=== PATIENT | male | born 1970 | race Caucasian/White ===

== ENCOUNTER 2017-10-23 07:18 | Emergency (ER) | payer MEDICAID ==
[~2017-10-23] VITALS: Ht 188 cm; Wt 88.5 kg
[2017-10-23] MEDS ORDERED: SODIUM CHLORIDE FLUSH 10ML SYR IVF ONE (08:00)
[2017-10-23 08:09] LABS: BASOPHILS # (AUTO) 0.03 x10^3/uL (0-0.1); BASOPHILS % (AUTO) 0 % (0-1); EOSINOPHILS # (AUTO) 0.04 x10^3/uL (0-0.4); EOSINOPHILS % (AUTO) 1 % (1-7); LYMPHOCYTES % (AUTO) 19 % (22-44); MD NO; MEAN CORPUSCULAR HEMOGLOBIN 30.4 pg (27.5-34.5); MEAN CORPUSCULAR HGB CONC 33.9 g/dL (33.2-36.2); MEAN CORPUSCULAR VOLUME 89.5 fL (81-97); MONOCYTES # (AUTO) 0.81 x10^3/uL (0.2-0.8); MONOCYTES % (AUTO) 9 % (2-9); NEUTROPHILS # (AUTO) 6.63 x10^3/uL (1.8-6.8); NEUTROPHILS % (AUTO) 71 % (42-75); PLATELET COUNT 257 x10^3/uL (130-400); RED BLOOD COUNT 5.17 x10^6/uL (4.38-5.82); RED CELL DISTRIBUTION WIDTH 12.8 % (9.4-14.8)
[2017-10-23 08:21] LABS: ALANINE AMINOTRANSFERASE 26 U/L (12-78); ALBUMIN 3.7 g/dL (3.4-5.0); ANION GAP 6 mmol/L (5-15); CALCIUM 9.3 mg/dL (8.5-10.1); CHLORIDE 107 mmol/L (98-107)
[2017-10-23 08:26] LABS: ALKALINE PHOSPHATASE 96 U/L (45-117); BILIRUBIN,TOTAL 0.5 mg/dL (0.2-1.0); CREATININE 1.17 mg/dL (0.7-1.3); TOTAL PROTEIN 7.5 g/dL (6.4-8.2); TROPONIN I < 0.015 ng/mL (0.000-0.045)
[2017-10-23 10:21] VITALS: BP 120/73
== END 2017-10-23 10:24 | disposition home or self-care (01) ==
LOC: ED 09:42
DX: R07.2 Precordial pain (principal); I25.2 Old myocardial infarction; I11.0 Hypertensive heart disease with heart failure; E78.5 Hyperlipidemia, unspecified; Z72.9 Problem related to lifestyle, unspecified
CPT/HCPCS: 36415; 71045; 80053; 83880; 84484; 85025; 85379; 93005; 99285

== ENCOUNTER 2018-02-18 03:41 | Emergency (ER) | payer MEDICAID ==
[~2018-02-18] VITALS: Ht 188 cm; Wt 84.2 kg
[2018-02-18 03:48] VITALS: BP 111/65
== END 2018-02-18 04:23 | disposition home or self-care (01) ==
LOC: ED 04:03
DX: Z48.00 Encounter for change or removal of nonsurgical wound dressing (principal); I10 Essential (primary) hypertension; I25.2 Old myocardial infarction; E78.5 Hyperlipidemia, unspecified; F17.200 Nicotine dependence, unspecified, uncomplicated
CPT/HCPCS: 99281

== ENCOUNTER 2018-02-19 10:45 | Emergency (ER) | payer MEDICAID ==
[~2018-02-19] VITALS: Ht 188 cm; Wt 82.7 kg
[2018-02-19] MEDS ORDERED: ASPIRIN 81 MG TABLET CHEW ONE (11:16)
[2018-02-19] MEDS ORDERED: NITROGLYCERIN SINGLE TAB 0.4 MG SL ONE (11:16)
[2018-02-19 11:23] LABS: BASOPHILS # (AUTO) 0.01 x10^3/uL (0-0.1); BASOPHILS % (AUTO) 0 % (0-1); EOSINOPHILS # (AUTO) 0.11 x10^3/uL (0-0.4); EOSINOPHILS % (AUTO) 1 % (1-7); LYMPHOCYTES # (AUTO) 1.39 x10^3/uL (1-3.4); LYMPHOCYTES % (AUTO) 15 % (22-44); MD NO; MEAN CORPUSCULAR HEMOGLOBIN 31.1 pg (27.5-34.5); MEAN CORPUSCULAR HGB CONC 34.4 g/dL (33.2-36.2); MEAN CORPUSCULAR VOLUME 90.2 fL (81-97); MEAN PLATELET VOLUME 8.8 fL (7.4-10.4); MONOCYTES # (AUTO) 0.85 x10^3/uL (0.2-0.8); MONOCYTES % (AUTO) 9 % (2-9); NEUTROPHILS # (AUTO) 6.82 x10^3/uL (1.8-6.8); NEUTROPHILS % (AUTO) 74 % (42-75); PLATELET COUNT 302 x10^3/uL (130-400); RED BLOOD COUNT 4.73 x10^6/uL (4.38-5.82); RED CELL DISTRIBUTION WIDTH 13.6 % (9.4-14.8)
[2018-02-19] MEDS ORDERED: NITROGLYCERIN OINT 2%, 1GM TP ONE ×2 (11:25→11:30)
[2018-02-19 11:28] LABS: CHLORIDE 104 mmol/L (98-107)
[2018-02-19] MEDS ORDERED: NITROGLYCERIN SINGLE TAB 0.4 MG SL PRN (11:30)
[2018-02-19] MEDS ORDERED: ASPIRIN 81 MG TABLET CHEW PO ONE (11:30)
[2018-02-19 11:35] LABS: ALANINE AMINOTRANSFERASE 632 U/L (12-78); ALBUMIN 3.5 g/dL (3.4-5.0); ANION GAP 14 mmol/L (5-15); CALCIUM 9.3 mg/dL (8.5-10.1); CREATININE 1.36 mg/dL (0.7-1.3)
[2018-02-19 11:46] LABS: ALKALINE PHOSPHATASE 167 U/L (45-117); BILIRUBIN,TOTAL 0.7 mg/dL (0.2-1.0); TOTAL PROTEIN 7.3 g/dL (6.4-8.2); TROPONIN I < 0.015 ng/mL (0.000-0.045)
[2018-02-19 11:52] VITALS: BP 109/67
== END 2018-02-19 12:43 | disposition home or self-care (01) ==
LOC: ED 12:32
DX: R07.2 Precordial pain (principal); E78.5 Hyperlipidemia, unspecified; I10 Essential (primary) hypertension; I25.2 Old myocardial infarction
CPT/HCPCS: 36415; 71045; 80053; 80074; 83690; 84484; 85025; 87521; 93005; 99285

== ENCOUNTER 2018-04-09 08:58 | Emergency (ER) | payer MEDICAID ==
[~2018-04-09] VITALS: Ht 188 cm; Wt 88.0 kg
[2018-04-09] MEDS ORDERED: MORPHINE SULFATE 4 MG/ML, 1ML ONE (10:22)
[2018-04-09] MEDS ORDERED: SODIUM CHLORIDE FLUSH 10ML SYR IVF ONE (10:30)
[2018-04-09] MEDS ORDERED: MORPHINE SULFATE 4 MG/ML, 1ML IVPush PRN (10:30)
[2018-04-09 10:32] LABS: MICROSCOPIC NOT IND
[2018-04-09 10:36] LABS: CULTURE INDICATED? NO
[2018-04-09 11:06] LABS: ALANINE AMINOTRANSFERASE 40 U/L (12-78); ALBUMIN 3.5 g/dL (3.4-5.0); ANION GAP 6 mmol/L (5-15); CALCIUM 9.3 mg/dL (8.5-10.1); CHLORIDE 105 mmol/L (98-107); CREATININE 0.89 mg/dL (0.7-1.3)
[2018-04-09 11:11] LABS: ALKALINE PHOSPHATASE 132 U/L (45-117); BILIRUBIN,TOTAL 0.3 mg/dL (0.2-1.0); TOTAL PROTEIN 7.2 g/dL (6.4-8.2); TROPONIN I < 0.015 ng/mL (0.000-0.045)
[2018-04-09 11:29] VITALS: BP 106/78
[2018-04-09 11:42] LABS: BASOPHILS # (AUTO) 0.03 x10^3/uL (0-0.1); BASOPHILS % (AUTO) 0 % (0-1); EOSINOPHILS # (AUTO) 0.16 x10^3/uL (0-0.4); EOSINOPHILS % (AUTO) 2 % (1-7); LYMPHOCYTES # (AUTO) 1.93 x10^3/uL (1-3.4); LYMPHOCYTES % (AUTO) 26 % (22-44); MD NO; MEAN CORPUSCULAR HEMOGLOBIN 31.1 pg (27.5-34.5); MEAN CORPUSCULAR HGB CONC 34.3 g/dL (33.2-36.2); MEAN CORPUSCULAR VOLUME 90.7 fL (81-97); MEAN PLATELET VOLUME 9.1 fL (7.4-10.4); MONOCYTES # (AUTO) 0.61 x10^3/uL (0.2-0.8); MONOCYTES % (AUTO) 8 % (2-9); NEUTROPHILS % (AUTO) 63 % (42-75); PLATELET COUNT 236 x10^3/uL (130-400); RED BLOOD COUNT 5.12 x10^6/uL (4.38-5.82); RED CELL DISTRIBUTION WIDTH 13.5 % (9.4-14.8)
[2018-04-09] MEDS ORDERED: MAGNESIUM CITRATE 300ML ORAL SOL PO ONE (12:30)
== END 2018-04-09 12:39 | disposition home or self-care (01) ==
LOC: ED 11:50
DX: K59.00 Constipation, unspecified (principal); I25.2 Old myocardial infarction; I10 Essential (primary) hypertension; E78.5 Hyperlipidemia, unspecified
CPT/HCPCS: 36415; 71046; 74021; 80053; 81003; 83605; 83690; 84484; 85025; 85379; 87040; 93005; 96374

== ENCOUNTER 2018-09-16 06:15 | Emergency (ER) | payer SELFPAY ==
[~2018-09-16] VITALS: Ht 188 cm; Wt 82.7 kg
--- NOTE | 2018-09-16 06:46 | NUR ---
FIRST CONTACT WITH PT. PT STATES THAT HE THINKS HE HAS AN INGUINAL HERNIA. PT C/O LOWER LEFT QUADRANT ABD PAIN RATE 8/10 AT THIS TIME. PT DENIES N/V/D. PT STATES THAT HE HAS HAD IT FOR ABOUT A MONTH AND THAT PAIN HAS BEEN INCREASINGLY GETTING WORSE OVER THE PAST 3 DAYS. PT STATES HE IS HAVING DIFFICULTY WALKING. BP/SPO2 MONITORS IN PLACE. CALL LIGHT WITHIN REACH. PA AT BEDSIDE TO ASSESS.
--- NOTE | 2018-09-16 06:48 | NUR ---
PT AMB TO BR AND BACK TO ROOM WITH STEADY GAIT.
--- NOTE | 2018-09-16 06:50 | NUR ---
Bedside report from Flavia Penn
--- NOTE | 2018-09-16 06:53 | NUR ---
REPORT GIVEN TO JAVIER AGUILLON.
[2018-09-16 07:17] LABS: BASOPHILS # (AUTO) 0.02 x10^3/uL (0-0.1); BASOPHILS % (AUTO) 0 % (0-1); EOSINOPHILS # (AUTO) 0.07 x10^3/uL (0-0.4); EOSINOPHILS % (AUTO) 1 % (1-7); LYMPHOCYTES # (AUTO) 1.72 x10^3/uL (1-3.4); LYMPHOCYTES % (AUTO) 21 % (22-44); MD NO; MEAN CORPUSCULAR HEMOGLOBIN 29.9 pg (27.5-34.5); MEAN CORPUSCULAR HGB CONC 33.3 g/dL (33.2-36.2); MEAN CORPUSCULAR VOLUME 89.9 fL (81-97); MEAN PLATELET VOLUME 8.2 fL (7.4-10.4); MONOCYTES # (AUTO) 0.57 x10^3/uL (0.2-0.8); MONOCYTES % (AUTO) 7 % (2-9); NEUTROPHILS # (AUTO) 5.77 x10^3/uL (1.8-6.8); NEUTROPHILS % (AUTO) 71 % (42-75); PLATELET COUNT 286 x10^3/uL (130-400); RED BLOOD COUNT 4.98 x10^6/uL (4.38-5.82); RED CELL DISTRIBUTION WIDTH 13.4 % (9.4-14.8)
[2018-09-16 07:20] LABS: ALBUMIN 3.9 g/dL (3.4-5.0); ANION GAP 4 mmol/L (5-15); CALCIUM 9.2 mg/dL (8.5-10.1); CHLORIDE 107 mmol/L (98-107); CREATININE 1.24 mg/dL (0.7-1.3)
--- NOTE | 2018-09-16 07:43 | NUR ---
PATIENT RESTING COMFORTABLY ON GURNEY DENIES LLQ PAIN/NAUSEA WHILE LYING REPORT PAIN 10/10 LLQ PRESSURE WHEN STANDING ABD FLAT (NOT DISTENDED), LLQ TENDER BUT W/ NORMAL BOWEL SOUNDS VSS PROVIDED W/ ADDITIONAL BLANKET BUT DEFERRED PO FLUIDS/SOLIDS TESTING IN PROGRESS UPDATED ON ESTIMATED POC PARTNER AT BEDSIDE LAB CALLED IN R/T URINE RESULTS- LAB TO POST RESULTS SHORTLY
[2018-09-16 07:47] LABS: CULTURE INDICATED? NO; MICROSCOPIC NOT IND
[2018-09-16 08:17] VITALS: BP 115/72
--- NOTE | 2018-09-16 08:19 | NUR ---
provider/assembly instructions writer reviewed d/c paln with patient w/ teach back successful. Patient to avoid bearing down, return if pain returns and hopefully get appointment w/ Dr. Gómez (surgeon) as soon as joie
== END 2018-09-16 08:20 | disposition home or self-care (01) ==
LOC: ED 07:57
DX: K40.91 Unilateral inguinal hernia, without obstruction or gangrene, recurrent (principal); I25.2 Old myocardial infarction; I10 Essential (primary) hypertension
CPT/HCPCS: 36415; 80048; 81003; 82040; 85025; 99283

== ENCOUNTER 2018-09-27 02:14 | Emergency (ER) | payer OTHER ==
[~2018-09-27] VITALS: Ht 188 cm; Wt 83.0 kg
--- NOTE | 2018-09-27 02:30 | NUR ---
PT. TO ED WITH C/O LEFT FACIAL SWELLING STARTING TONIGHT. DR. SANCHEZ AT BS FOR EVAL. PT. REPORTS UPPER GUM PAIN ON LEFT SIDE. CALL LIGHT IN REACH. FAMILY AT BS.
[2018-09-27] MEDS ORDERED: LIDOCAINE-MPF 1%, 5ML ONE (02:33)
[2018-09-27] MEDS ORDERED: OXYcodone/APAP 5/325MG TABLET ONE (02:46)
[2018-09-27] MEDS ORDERED: IBUPROFEN 600 MG TABLET ONE (02:46)
[2018-09-27] MEDS ORDERED: IBUPROFEN 600 MG TABLET PO ONE (03:00)
[2018-09-27] MEDS ORDERED: LIDOCAINE-MPF 1%, 5ML INFIL ONE (03:00)
[2018-09-27] MEDS ORDERED: OXYcodone/APAP 5/325MG TABLET PO ONE (03:00)
[2018-09-27 03:14] VITALS: BP 133/92
== END 2018-09-27 03:22 | disposition home or self-care (01) ==
LOC: ED 02:48
DX: K04.7 Periapical abscess without sinus (principal); K02.9 Dental caries, unspecified; I10 Essential (primary) hypertension; I25.2 Old myocardial infarction
CPT/HCPCS: 41800; 99283

== ENCOUNTER 2018-10-01 16:45 | Emergency (ER) | payer SELFPAY ==
[~2018-10-01] VITALS: Ht 188 cm; Wt 85.2 kg
[2018-10-01 18:05] LABS: BASOPHILS % (AUTO) 0 % (0-1); EOSINOPHILS # (AUTO) 0.14 x10^3/uL (0-0.4); EOSINOPHILS % (AUTO) 1 % (1-7); LYMPHOCYTES # (AUTO) 1.15 x10^3/uL (1-3.4); LYMPHOCYTES % (AUTO) 12 % (22-44); MD NO; MEAN CORPUSCULAR HEMOGLOBIN 30.4 pg (27.5-34.5); MEAN CORPUSCULAR HGB CONC 33.8 g/dL (33.2-36.2); MEAN PLATELET VOLUME 8.6 fL (7.4-10.4); MONOCYTES # (AUTO) 0.82 x10^3/uL (0.2-0.8); MONOCYTES % (AUTO) 8 % (2-9); NEUTROPHILS # (AUTO) 7.86 x10^3/uL (1.8-6.8); NEUTROPHILS % (AUTO) 79 % (42-75); PLATELET COUNT 206 x10^3/uL (130-400); RED CELL DISTRIBUTION WIDTH 13.2 % (9.4-14.8)
[2018-10-01 18:10] LABS: ALBUMIN 3.1 g/dL (3.4-5.0); ANION GAP 4 mmol/L (5-15); CALCIUM 8.5 mg/dL (8.5-10.1); CHLORIDE 110 mmol/L (98-107); CREATININE 1.14 mg/dL (0.7-1.3)
[2018-10-01] MEDS ORDERED: HYDROcodone/APAP 5/325 TABLET PO ONE (19:00)
[2018-10-01] MEDS ORDERED: AMPICILLIN/SULBACTAM 3 GM in SODIUM CHLORIDE 0.9% 100 ML IV ONE (19:00)
[2018-10-01] MEDS ORDERED: HYDROcodone/APAP 5/325 TABLET ONE (19:03)
--- NOTE | 2018-10-01 19:07 | NUR ---
SPLINT APPLIED BY TECH TO LEFT ARM. IV ANTIBIOTICS STARTED. PT MEDICATED FOR PAIN PER EMAR.
--- NOTE | 2018-10-01 20:43 | NUR ---
PT SLEEPING. VSS. UPDATED ON POC.
[2018-10-01 21:09] VITALS: BP 124/71
--- NOTE | 2018-10-01 21:10 | NUR ---
PIV REMOVED, PT GETTING DRESSED FOR DISCHARGE HOME
== END 2018-10-01 21:16 | disposition home or self-care (01) ==
LOC: ED 20:39
DX: L03.114 Cellulitis of left upper limb (principal); F17.200 Nicotine dependence, unspecified, uncomplicated; I25.10 Atherosclerotic heart disease of native coronary artery without angina pectoris; I25.2 Old myocardial infarction; I10 Essential (primary) hypertension; E78.5 Hyperlipidemia, unspecified
CPT/HCPCS: 36415; 73130; 80048; 82040; 85025; 87040; 96365; 99284; J0295

== ENCOUNTER 2018-10-01 22:56 | Emergency (ER) | payer SELFPAY ==
--- NOTE | 2018-10-01 23:23 | NUR ---
NOT IN LOBBY WHEN CALLED
--- NOTE | 2018-10-01 23:28 | NUR ---
NIL X 3 CALLS
== END 2018-10-01 23:30 | disposition left against medical advice (07) ==
LOC: ED 23:24
DX: M79.642 Pain in left hand (principal); Z53.21 Procedure and treatment not carried out due to patient leaving prior to being seen by health care provider

== ENCOUNTER 2019-04-21 13:03 | Emergency (ER) | payer MEDICAID ==
[~2019-04-21] VITALS: Ht 188 cm; Wt 81.3 kg
[2019-04-21 13:19] VITALS: BP 102/62
[2019-04-21] MEDS ORDERED: ONDANSETRON ODT 4 MG ONE (13:49)
[2019-04-21] MEDS ORDERED: HYDROcodone/APAP 5/325 TABLET ONE (13:49)
[2019-04-21] MEDS ORDERED: ONDANSETRON ODT 4 MG PO ONE (14:00)
[2019-04-21] MEDS ORDERED: HYDROcodone/APAP 5/325 TABLET PO ONE (14:00)
== END 2019-04-21 15:46 | disposition home or self-care (01) ==
LOC: ED 15:40
DX: S06.0X0A Concussion without loss of consciousness, initial encounter (principal); S00.432A Contusion of left ear, initial encounter; S00.83XA Contusion of other part of head, initial encounter; S09.90XA Unspecified injury of head, initial encounter; I25.2 Old myocardial infarction; I10 Essential (primary) hypertension; I25.10 Atherosclerotic heart disease of native coronary artery without angina pectoris; X58.XXXA Exposure to other specified factors, initial encounter; Y93.89 Activity, other specified; Y92.89 Other specified places as the place of occurrence of the external cause; Y99.8 Other external cause status
CPT/HCPCS: 70450; 70486; 99284; Q0162

== ENCOUNTER 2019-05-05 21:07 | Emergency (ER) | payer MEDICAID ==
[~2019-05-05] VITALS: Ht 188 cm; Wt 80.0 kg
[2019-05-05 21:09] VITALS: BP 114/70
--- NOTE | 2019-05-05 21:20 | NUR ---
PT C/O LEFT INGUINAL HURNIA THAT HAS BEEN THERE FOR A FEW MONTHS. PAIN HAS INCREASED IN PAST COUPLE DAYS. CALL LIGHT IN REACH. MD AT BEDSIDE. AWAITING ORDERS AT THIS TIME.
[2019-05-05] MEDS ORDERED: HYDROcodone/APAP 5/325 TABLET PO ONE (21:30)
[2019-05-05] MEDS ORDERED: ONDANSETRON ODT 4 MG PO ONE (21:30)
[2019-05-05] MEDS ORDERED: ONDANSETRON ODT 4 MG ONE (21:44)
[2019-05-05] MEDS ORDERED: HYDROcodone/APAP 5/325 TABLET ONE (21:45)
--- NOTE | 2019-05-05 21:56 | NUR ---
MEDS ADMIN PER JUL.
--- NOTE | 2019-05-05 22:03 | NUR ---
PT DECLINED TAXI VOUCHER AND BUS PASS.
== END 2019-05-05 22:05 | disposition home or self-care (01) ==
LOC: ED 21:55
DX: K40.91 Unilateral inguinal hernia, without obstruction or gangrene, recurrent (principal); E78.5 Hyperlipidemia, unspecified; I11.9 Hypertensive heart disease without heart failure; I25.2 Old myocardial infarction; F17.200 Nicotine dependence, unspecified, uncomplicated; Z72.9 Problem related to lifestyle, unspecified
CPT/HCPCS: 99283; Q0162

== ENCOUNTER 2019-05-26 09:04 | Emergency (ER) | payer MEDICAID ==
[~2019-05-26] VITALS: Ht 188 cm; Wt 84.1 kg
[2019-05-26] MEDS ORDERED: OXYcodone/APAP 5/325MG TABLET ONE (09:51)
[2019-05-26] MEDS ORDERED: KETOROLAC 60 MG/2 ML ONE (09:51)
[2019-05-26] MEDS ORDERED: AMOXICILLIN 500 MG CAPSULE ONE (09:51)
--- NOTE | 2019-05-26 09:56 | NUR ---
PT MEDICATED PER ERP ORDER. CALL LIGHT WITHIN REACH.
[2019-05-26] MEDS ORDERED: KETOROLAC 30 MG/1 ML IM ONE (10:00)
[2019-05-26] MEDS ORDERED: AMOXICILLIN 500 MG CAPSULE PO ONE (10:00)
[2019-05-26] MEDS ORDERED: OXYcodone/APAP 5/325MG TABLET PO ONE (10:00)
[2019-05-26 10:32] VITALS: BP 132/74
== END 2019-05-26 10:37 | disposition home or self-care (01) ==
LOC: ED 09:25
DX: K08.89 Other specified disorders of teeth and supporting structures (principal); I25.10 Atherosclerotic heart disease of native coronary artery without angina pectoris; I25.2 Old myocardial infarction; I10 Essential (primary) hypertension; E78.5 Hyperlipidemia, unspecified
CPT/HCPCS: 96372; 99283; J1885

== ENCOUNTER 2019-05-31 13:19 | Emergency (ER) | payer MEDICAID ==
[~2019-05-31] VITALS: Ht 188 cm; Wt 84.6 kg
[2019-05-31 14:01] LABS: RAPID INFLUENZA A Negative (Negative); RAPID INFLUENZA B Negative (Negative)
[2019-05-31 14:12] LABS: BASOPHILS # (AUTO) 0.02 x10^3/uL (0-0.1); BASOPHILS % (AUTO) 0 % (0-1); EOSINOPHILS # (AUTO) 0.09 x10^3/uL (0-0.4); EOSINOPHILS % (AUTO) 1 % (1-7); LYMPHOCYTES # (AUTO) 1.88 x10^3/uL (1-3.4); LYMPHOCYTES % (AUTO) 24 % (22-44); MD NO; MEAN CORPUSCULAR HEMOGLOBIN 30.2 pg (27.5-34.5); MEAN CORPUSCULAR HGB CONC 33.3 g/dL (33.2-36.2); MEAN CORPUSCULAR VOLUME 90.7 fL (81-97); MONOCYTES # (AUTO) 0.75 x10^3/uL (0.2-0.8); MONOCYTES % (AUTO) 10 % (2-9); NEUTROPHILS # (AUTO) 5.01 x10^3/uL (1.8-6.8); NEUTROPHILS % (AUTO) 65 % (42-75); PLATELET COUNT 250 x10^3/uL (130-400); RED BLOOD COUNT 4.73 x10^6/uL (4.38-5.82); RED CELL DISTRIBUTION WIDTH 13.2 % (9.4-14.8)
[2019-05-31 14:19] LABS: ALBUMIN 3.2 g/dL (3.4-5.0); ANION GAP 7 mmol/L (5-15); CHLORIDE 108 mmol/L (98-107)
--- NOTE | 2019-05-31 14:39 | NUR ---
RADIOLOGY NURSE: PT AMBULATORY TO ROOM FROM LOBBY
--- NOTE | 2019-05-31 14:42 | NUR ---
TASK RN: PT TO ROOM FROM LOBBY, GAIT STEADY. PT "I HAVE TO GO TO THE BR, AMB TO BR, GAIT STEADY
--- NOTE | 2019-05-31 14:43 | NUR ---
TASK RN: PT RETURN TO ROOM. 49 YR OLD MALE HERE WITH C/O "CHEST PAIN FOR 3 DAYS" SHARP. MOVING MAKES PAIN WORSE.
--- NOTE | 2019-05-31 14:51 | NUR ---
PT CAME IN CO OF SHARP CHEST PAIN IN THE EPIGASTRIC AREA. EKG DONE. HX OF ME, HTN. PT HOOKED UP TO INCIDENT COORDINATOR. BLOOD DRAWN IN LOBBY. BLANKET PROVIDED. CALL LIGHT WITHIN REACH
[2019-05-31 14:53] VITALS: BP 120/74
== END 2019-05-31 15:50 | disposition home or self-care (01) ==
LOC: ED 15:30
DX: J98.01 Acute bronchospasm (principal); I11.9 Hypertensive heart disease without heart failure; I25.2 Old myocardial infarction; E78.5 Hyperlipidemia, unspecified; F17.200 Nicotine dependence, unspecified, uncomplicated
CPT/HCPCS: 36415; 71046; 80048; 82040; 85025; 87400; 93005; 99284

== ENCOUNTER 2019-11-19 15:59 | Emergency (ER) | payer MEDICAID ==
[~2019-11-19] VITALS: Ht 188 cm; Wt 85.1 kg
[2019-11-19 16:15] VITALS: BP 112/70
--- NOTE | 2019-11-19 18:40 | NUR ---
NO ANSWER X1
--- NOTE | 2019-11-19 19:00 | NUR ---
NO ANSWER X 2
--- NOTE | 2019-11-19 19:11 | NUR ---
NO ANSWER X3
== END 2019-11-19 19:13 | disposition left against medical advice (07) ==
LOC: ED 19:07
DX: M79.89 Other specified soft tissue disorders (principal); M25.521 Pain in right elbow; Z53.21 Procedure and treatment not carried out due to patient leaving prior to being seen by health care provider

== ENCOUNTER 2019-11-20 10:15 | Emergency (ER) | payer MEDICAID ==
[~2019-11-20] VITALS: Ht 188 cm; Wt 86.3 kg
--- NOTE | 2019-11-20 10:35 | NUR ---
TASK RN, FIRST CONTACT WITH PT. Pt c/o right elbow pain and swelling for 3 days without injury or trauma. Pt resting on gurney with EDPA at bedside. NADN. No needs expressed at this time. Pt connected to NIBP cuff and continous pulse ox. Call light within reach.
[2019-11-20] MEDS ORDERED: ONDANSETRON ODT 4 MG ONE (10:41)
[2019-11-20] MEDS ORDERED: HYDROcodone/APAP 5/325 TABLET ONE (10:42)
[2019-11-20 10:54] LABS: BASOPHILS # (AUTO) 0.07 x10^3/uL (0-0.1); BASOPHILS % (AUTO) 1 % (0-1); EOSINOPHILS # (AUTO) 0.04 x10^3/uL (0-0.4); EOSINOPHILS % (AUTO) 0 % (1-7); LYMPHOCYTES # (AUTO) 1.36 x10^3/uL (1-3.4); LYMPHOCYTES % (AUTO) 15 % (22-44); MD NO; MEAN CORPUSCULAR HEMOGLOBIN 30.4 pg (27.5-34.5); MEAN CORPUSCULAR HGB CONC 33.6 g/dL (33.2-36.2); MEAN CORPUSCULAR VOLUME 90.4 fL (81-97); MEAN PLATELET VOLUME 8.3 fL (7.4-10.4); MONOCYTES # (AUTO) 0.84 x10^3/uL (0.2-0.8); MONOCYTES % (AUTO) 9 % (2-9); NEUTROPHILS # (AUTO) 6.74 x10^3/uL (1.8-6.8); NEUTROPHILS % (AUTO) 74 % (42-75); PLATELET COUNT 187 x10^3/uL (130-400); RED BLOOD COUNT 4.84 x10^6/uL (4.38-5.82); RED CELL DISTRIBUTION WIDTH 13.2 % (9.4-14.8)
[2019-11-20] MEDS ORDERED: ONDANSETRON ODT 4 MG PO ONE (11:00)
[2019-11-20] MEDS ORDERED: PLEASE ENTER ALLERGIES MC SCH (11:00)
[2019-11-20] MEDS ORDERED: HYDROcodone/APAP 5/325 TABLET PO ONE (11:00)
[2019-11-20 11:03] LABS: ALANINE AMINOTRANSFERASE 28 U/L (12-78); ALBUMIN 3.3 g/dL (3.4-5.0); ANION GAP 6 mmol/L (5-15); CALCIUM 8.6 mg/dL (8.5-10.1); CHLORIDE 107 mmol/L (98-107); CREATININE 0.97 mg/dL (0.7-1.3)
[2019-11-20 11:05] LABS: ALKALINE PHOSPHATASE 114 U/L (45-117); BILIRUBIN,TOTAL 0.7 mg/dL (0.2-1.0); TOTAL PROTEIN 7.6 g/dL (6.4-8.2)
[2019-11-20 12:16] VITALS: BP 102/54
== END 2019-11-20 12:18 | disposition home or self-care (01) ==
LOC: ED 10:55
DX: M70.21 Olecranon bursitis, right elbow (principal); M25.521 Pain in right elbow; I25.2 Old myocardial infarction; E78.5 Hyperlipidemia, unspecified; I25.10 Atherosclerotic heart disease of native coronary artery without angina pectoris; F17.200 Nicotine dependence, unspecified, uncomplicated
CPT/HCPCS: 36415; 73080; 80053; 84550; 85025; 99284; Q0162

== ENCOUNTER 2021-01-16 09:08 | Emergency (ER) | payer MEDICAID ==
[~2021-01-16] VITALS: Ht 185.4 cm; Wt 80.0 kg
[2021-01-16 09:32] LABS: BASOPHILS % (AUTO) 1 % (0-1); EOSINOPHILS % (AUTO) 1 % (1-7); LYMPHOCYTES % (AUTO) 17 % (22-44); MEAN CORPUSCULAR HEMOGLOBIN 30.7 pg (27.5-34.5); MEAN PLATELET VOLUME 8.2 fL (7.4-10.4); MONOCYTES % (AUTO) 6 % (2-9); NEUTROPHILS % (AUTO) 76 % (42-75); PLATELET COUNT 258 x10^3/uL (130-400); RED CELL DISTRIBUTION WIDTH 13.1 % (9.4-14.8)
--- NOTE | 2021-01-16 09:42 | NUR ---
Upon triage pt profusely diaphoretic, rapid respirations. Pt denies any recent drug use but c/o left jaw neck pain as well. Pt with cardiac hx, stat ekg done. Pain is reproducable to jaw/neck. 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 Also with track holcomb to [employer]. 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 Pt has no chest pain. Placed on monitor NSR no ectopy no ST elevation, IV, cont pulse ox and bloods drawn and sent. AIDET provided.
[2021-01-16 09:44] LABS: ALANINE AMINOTRANSFERASE 72 U/L (12-78); ANION GAP 7 mmol/L (5-15); CALCIUM 8.8 mg/dL (8.5-10.1); CHLORIDE 103 mmol/L (98-107)
[2021-01-16 09:49] LABS: ALKALINE PHOSPHATASE 122 U/L (45-117); BILIRUBIN,TOTAL 0.4 mg/dL (0.2-1.0); TROPONIN I < 0.015 ng/mL (0.000-0.045)
[2021-01-16 10:45] VITALS: BP 135/71
== END 2021-01-16 10:47 | disposition home or self-care (01) ==
LOC: ED 10:41
DX: K02.9 Dental caries, unspecified (principal); R07.89 Other chest pain; F15.10 Other stimulant abuse, uncomplicated; K08.89 Other specified disorders of teeth and supporting structures; I10 Essential (primary) hypertension; I25.10 Atherosclerotic heart disease of native coronary artery without angina pectoris; I25.2 Old myocardial infarction; E78.5 Hyperlipidemia, unspecified
CPT/HCPCS: 36415; 71045; 80053; 83880; 84484; 85025; 93005; 99285